=== PATIENT | female | born 1955 | race African-American/Black ===

== ENCOUNTER → 2016-11-11 | Outpatient (CLI) | payer MEDICAID ==
--- NOTE | ~2016-11-11 | MY11 ---
[facility] A Service of [facility] RADIOLOGY TEXT RESULTS PATIENT: SILVIA AVILEZ LOCATION: [facility] : 55 UNIT #: [id number] AGE: [address]: Katelyn Mccormick MD SEX: F ORDER DR: [id number] [facility] [address] [place], [place] [address] [id number] O MR#: [id number] Acc #: [id number] NAME: SILVIA AVILEZ. : 1955 SEX: F STUDY DATE/TIME: 11/11/2016 11:36 UNIT: [facility] ROOM: STUDY DESCRIPTION: MY Mammogram Screening Dig Nayan Attending Physician: Katelyn Mccormick M.D. Referring Physician: Katelyn Mccormick M.D. Ordering Physician: Katelyn Mccormick M.D. Primary Care Physician: Katelyn Mccormick M.D. MEDICAL IMAGING REPORT This report is preliminary unless electronic signature is present EXAM Bilateral Digital Screening Mammogram with CAD INDICATION Breast cancer screening. 60-year-old asymptomatic female. No personal or family history of breast cancer. COMPARISON September 10, 2015, June 14, 2013, June 21, 2011, June 09, 2011 FINDINGS There are scattered fibroglandular tissues. No suspicious findings are present. IMPRESSION No mammographic evidence of malignancy. Annual screening mammography and clinical breast exam are recommended. A result letter will be sent to the patient. Patients over the age of 40 are entered into a reminder system with target due date for the next mammogram. BIRADS: 1 Negative Dictated by... Moisés Weller M.D. THIS IS AN ELECTRONICALLY VERIFIED REPORT [facility] A Service of [facility] RADIOLOGY TEXT RESULTS PATIENT: SILVIA AVILEZ LOCATION: [facility] : 55 UNIT #: [id number] AGE: [address]: Katelyn Mccormick MD SEX: F ORDER DR: Moisés Weller M.D. at 11/14/2016 6:33 PM BLM/psc TD: 11/11/2016 20:34 JOB #: [id number] MEDICAL IMAGING REPORT COPY
== END | disposition home or self-care (01) ==
LOC: CWCC 11:10
DX: Z12.31 Encounter for screening mammogram for malignant neoplasm of breast (principal)
CPT/HCPCS: G0202

== ENCOUNTER → 2017-02-04 | Outpatient (CLI) | payer MEDICAID ==
--- NOTE | ~2017-02-04 | MR113 ---
[facility] A Service of [facility] RADIOLOGY TEXT RESULTS PATIENT: SILVIA AVILEZ LOCATION: [facility] : 55 UNIT #: [id number] AGE: [address]: Surinder Duarte MD SEX: F ORDER DR: [id number] [facility] [address] [place], [place] [address] [id number] O MR#: [id number] Acc #: [id number] NAME: SILVIA AVILEZ. : 1955 SEX: F STUDY DATE/TIME: 02/04/2017 12:52 UNIT: [facility] ROOM: STUDY DESCRIPTION: MR Lumbar Wo Contrast Attending Physician: Surinder Duarte M.D. Referring Physician: Surinder Duarte M.D. Ordering Physician: Surinder Duarte M.D. Primary Care Physician: Katelyn Mccormick M.D. MRI CENTER REPORT This report is preliminary unless electronic signature is present. EXAM MR lumbar spine, 02/04. INDICATION Low back pain and left lower extremity radiculopathy for about 1 year. No trauma. Symptoms not relieved with physical therapy. TECHNIQUE Axial and sagittal noncontrast multisequence images were obtained through the lumbar spine. COMPARISON No comparison. FINDINGS Lumbar alignment is normal. No subluxation is seen. There are no compression fractures. Bone marrow signal is homogeneous and normal. Conus terminates at T12. It is normal in caliber and signal intensity. There are cysts in the lower pole of the left kidney. These were shown to be cysts by a CT scan 10/20/2016. At L5-S1, there is bilateral facet arthropathy. There is desiccation of the disc with a posterior broad-based disc bulge. There is minimal narrowing the foramen at this level. No central stenosis is seen. At L4-5, there is facet arthropathy and ligamentum flavum hypertrophy. There is a broad-based disc bulge with a focal central small herniation. The herniation measures approximately 11 x 5 x 11 mm. There is a mild degree of bilateral foraminal stenosis due to the broad-based bulge and facet disease. There is also mild central stenosis. This disc herniation may be contacting the right L5 root, but it is not displacing it. At L3-4, there is facet arthropathy and ligament flavum hypertrophy. [facility]. [facility] A Service of [facility] RADIOLOGY TEXT RESULTS PATIENT: SILVIA AVILEZ [facility] : 55 UNIT #: [id number] AGE: [address]: Surinder Duarte MD SEX: F ORDER DR: Minimal disc bulge is seen with minimal narrowing of the foramina due to disc material in the lateral recesses as well as the facet arthropathy. No central stenosis. At L2-3, there is facet arthropathy and ligamentum flavum hypertrophy. No disc bulging or herniation is seen. Minimal, if any, foraminal stenosis identified. At L1-2, there is facet arthropathy. No disc bulging is seen. There is no central canal or neural foraminal stenosis. The lower 2 thoracic discs are normal on the sagittal images provided. IMPRESSION 1. No fracture or subluxation. 2. Multilevel degenerative disc disease and facet arthropathy as detailed above. 3. Focal central disc herniation at L4-5 as described above. Dictated by... Jose Moralez Jr., M.D. THIS IS AN ELECTRONICALLY VERIFIED REPORT Jose Moralez Jr., M.D. at 02/07/2017 5:01 PM CM/reyna TD: 02/07/2017 16:13 JOB #: [id number] MRI CENTER REPORT Page 1 of 1 COPY
== END | disposition home or self-care (01) ==
LOC: CMRI 12:19
DX: M54.17 Radiculopathy, lumbosacral region (principal); M51.16 Intervertebral disc disorders with radiculopathy, lumbar region; M46.96 Unspecified inflammatory spondylopathy, lumbar region
CPT/HCPCS: 72148